=== PATIENT | male | born 1970 | race African-American/Black ===

== ENCOUNTER 2017-12-18 12:28 | Inpatient (IN) | payer MEDICAID, OTHER ==
[2017-12-18 13:19] LABS: #Basophils 0.2 thou/uL (0.0-0.2); #Eosinphils 0.1 thou/uL (0.0-0.7); #Lymphocytes 1.5 thou/uL (1.20-3.40); #Neutrophils 5.5 thou/uL (1.40-6.50); %Basophils 2.2 % (0.0-1.0); %Lymphocytes 18.6 % (21.0-51.0); %Monocytes 12.3 % (0.0-10.0); %Neutrophils 65.9 % (42.0-75.0); Hemoglobin 15.7 g/dL (14.0-18.0); Mean Corpuscular HGB CONC 32.9 g/dL (32.0-36.0); Mean Corpuscular Hemoglobin 30.8 pg (27.0-31.0); Mean Corpuscular Volume 93.8 fl (80.0-94.0); Mean Platelet Volume 7.6 fL (7.4-10.4); Platelet Count 240 thou/uL (130-400); RBC Distribution Width 13.7 % (11.5-14.5); Red Blood Cell (RBC) Count 5.11 mill/uL (4.70-6.10); White Blood Cell (WBC) Count 8.3 thou/uL (4.8-10.8)
[2017-12-18 13:22] LABS: Base Excess-Venous -0.8 mmol/L (0 (+/- 2.5)); Bicarbonate (HCO3v) 22.3 mmol/L (1.0-85.0); CO2 Tension (PvCO2) 32.1 mmHg (41.0-51.0); Calcium, Ionized 1.08 mmol/L (1.12-1.32); Hemoglobin - Calc 16.3 g/dL (12.0-18.0); O2 Tension (PvO2) 77.4 mmHg (35.0-45.0); Potassium 3.5 mmol/L (3.4-4.7); T. Carbon Dioxide 23.2 mmol/L (1.0-85.0); pH (Venous) 7.449 (7.35-7.45); vO2 Saturation-calc 96.1 % (94-98)
[2017-12-18 13:34] LABS: Lactic Acid 1.9 mmol/L (0.5-2.2)
[2017-12-18 13:38] LABS: ALT (SGPT) 15 U/L (8-55); AST (SGOT) 23 U/L (5-34); Albumin 3.9 g/dL (3.5-5.0); Alkaline Phosphatase 66 U/L (40-150); Anion Gap 12 mmol/L (10-20); BUN (Urea Nitrogen) 20 mg/dL (8.9-20.6); Bilirubin, Total 1.3 mg/dL (0.2-1.2); CK (CPK) 593 U/L (30-200); Calc. Creatinine Clearance 0 mL/min (70-130); Calcium 8.8 mg/dL (7.8-10.44); Carbon Dioxide 23 mmol/L (22-29); Chloride 110 mmol/L (98-107); Estimated GFR-MDRD 50; Glucose 119 mg/dL (70-105); Potassium 3.6 mmol/L (3.5-5.1); Protein, Total 6.9 g/dL (6.0-8.3); Sodium 141 mmol/L (136-145)
[2017-12-18 13:42] LABS: Troponin I 0.152 ng/mL (< 0.028)
[2017-12-18 13:47] LABS: CKMB 8.4 ng/mL (0-6.6)
--- NOTE | 2017-12-18 13:54 | RAD ---
CHEST 2 VIEWS: Date: 12/18/17 HISTORY: Chest pain. Blood stools. COMPARISON: None. FINDINGS: Normal cardiac silhouette. Pulmonary vessels and hilum are normal. Minimal blunting of the right cost ophrenic angle. Possible left lower lobe infiltrate. No pneumothorax or osseous abnormalities. IMPRESSION: 1. Left lower lobe infiltrate. 2. Minimal blunting of right costophrenic angle due to small effusion or atelectasis. POS: [facility]
[2017-12-18] MEDS ORDERED: Furosemide 40 MG/4 ML VIAL ONE (14:53)
[2017-12-18] MEDS ORDERED: Nitroglycerin 2% Ointment 1 INCH/1 GM Packet ONE (14:53)
[2017-12-18] MEDS ORDERED: Lorazepam 2 MG/ML VIAL ONE (14:54)
--- NOTE | 2017-12-18 16:42 | PDOC.FPRHP ---
- History of Present Illness Chief Complaint: shortness of breath for 3 days History of Present Illness: Kleber Prado is a 47 year old M with PMH of CHF, HLD, HTN, CAD s/p MN, and hx of strokes who presents to ED to with 3 day history of increased dyspnea, orthopnea, and paroxysmal nocturnal dyspnea. Patient states that he has a history of heart failure and his noncompliant with his medications, he has not taken any of his medications for the last 4 months. He moved to [place] from [place] in June of 2017 and he had issues with getting [place] insurance and he has not established care with a PCP in [place]. Patient states that his dyspnea is worse at night and it is very difficult for him to sleep. He often tries to sleep sitting up against his recliner with a fan blowing on him. He also states that he has associated leg edema. He endorses occasional use of cocaine, his last use was last night. Patient says he also has chronic bronchitis and for the last week he has had a bad cough and he occasional will cough up bright red blood. Those episodes of hemoptysis mostly occurred with intense coughing in the morning and resolved completely within an hour. Patient states that he became very concerned this morning when he had a BM and when he wiped there was bright red blood on the toilet paper. He states that he has never had blood on the toilet paper before and he denies any abdominal pain, constipation, straining. He has not had any other BMs today. Denies fever, chills, chest pain, vomiting, abdominal pain. ED Course: In the ED, patient received lasix, ativan, nitro paste, and duonebs which improved his symptoms. - Allergies/Adverse Reactions Allergies Allergy/AdvReac Type Severity Reaction Status Date / Time No Known Drug Allergies Allergy Verified 12/18/17 16:43 - Home Medications Medication Instructions Recorded Confirmed Type Amlodipine [Norvasc] 5 mg PO DAILY #30 tab 12/19/17 Rx Aspirin [Aspirin Chewable Tablet] 81 mg PO DAILY #30 tab 12/19/17 Rx Atorvastatin Calcium [Lipitor] 40 mg PO HS 30 Days #30 tab 12/19/17 Rx Lisinopril [Zestril] 10 mg PO DAILY #30 tab 12/19/17 Rx Pantoprazole [Protonix] 40 mg PO DAILY #30 tab 12/19/17 Rx Comments: Patient has not taken any medications and does not know doses of any medications. States that he thinks he has taken Coreg, Amlodipine, Lasix, Aspirin, Entresto and Lisinopril in the past. - History PMHx: CHF, Hyperlipidemia, Hypertension, CAD s/p MN, hx of strokes PSHx: Heart Cath several years ago, skull surgery after head trauma FHx: unknown Social: Endorses occasionally using cocaine, last use was last night, minimal alcohol use, and spokes about 1/3 ppd for the last 10 years - Review of Systems General: denies: fever/chills, weight/appetite/sleep changes, night sweats Eyes: denies: eye pain, vision changes ENT: denies: nasal congestion, rhinorrhea Respiratory: reports: cough, shortness of breath, exercise intolerance. denies : congestion Cardiovascular: reports: edema, paroxysmal nocturnal dyspnea, orthopnea. denies : chest pain, palpitation Gastrointestinal: reports: nausea, GI bleeding (BRBPR this morning on toilet paper). denies: vomiting, diarrhea, constipation, abdominal pain Genitourinary: denies: incontinence, dysuria, polyuria, discharge Skin: denies: rashes, lesions, jaundice, itching Musculoskeletal: denies: pain, tenderness, stiffness, swelling, arthritis/ arthralgias Neurological: denies: numbness, syncope, seizure, weakness Psychological: denies: anxiety, depression - Vital signs BP: 189/117 HR: 95 RR: 18 Tmax: 98.6 Pox: 99% on RA Wt: 117 kg - Physical Exam Constitutional: NAD, awake, alert and oriented, well developed -Constitutional: obese HEENT: normocephalic and atraumatic, PERRLA, EOMI, conjunctiva clear, MMM Neck: supple, FROM, no JVD Chest: no-tender to palpation, no lesions Heart: RRR, normal S1/S2, no murmurs/rubs/gallops Lungs: CTAB, no respiratory distress, good air movement, no rales/rhonchi, no wheezing Abdomen: soft, non-tender, bowel sounds present Musculoskeletal: normal structure, normal tone, ROM grossly normal Neurological: no focal deficit, CN II-XII intact, normal sensation Skin: no rash/lesions, good turgor Heme/Lymphatic: no unusual bruising or bleeding Psychiatric: normal mood and affect, intact recent and remote memory FMR H&P: Results - Labs Result Diagrams: 12/19/17 05:23 12/19/17 05:23 Lab results: WBC 8.3 thou/uL (4.8-10.8) 12/18/17 13:06 Hgb 15.7 g/dL (14.0-18.0) 12/18/17 13:06 Hct 47.9 % (42.0-52.0) 12/18/17 13:06 MCV 93.8 fl (80.0-94.0) 12/18/17 13:06 Plt Count 240 thou/uL (130-400) 12/18/17 13:06 Neutrophils % 65.9 % (42.0-75.0) 12/18/17 13:06 VBG pCO2 32.1 mmHg (41.0-51.0) L 12/18/17 13:20 VBG pO2 77.4 mmHg (35.0-45.0) H 12/18/17 13:20 Sodium 141 mmol/L (136-145) 12/18/17 13:07 Potassium 3.6 mmol/L (3.5-5.1) 12/18/17 13:07 Chloride 110 mmol/L (98-107) H 12/18/17 13:07 Carbon Dioxide 23 mmol/L (22-29) 12/18/17 13:07 BUN 20 mg/dL (8.9-20.6) 12/18/17 13:07 Creatinine 1.52 mg/dL (0.6-1.3) H 12/18/17 13:07 Glucose 119 mg/dL (70-105) H 12/18/17 13:07 Lactic Acid 1.9 mmol/L (0.5-2.2) 12/18/17 13:06 Calcium 8.8 mg/dL (7.8-10.44) 12/18/17 13:07 Total Bilirubin 1.3 mg/dL (0.2-1.2) H 12/18/17 13:07 AST 23 U/L (5-34) 12/18/17 13:07 ALT 15 U/L (8-55) 12/18/17 13:07 Alkaline Phosphatase 66 U/L (40-150) 12/18/17 13:07 Creatine Kinase 593 U/L (30-200) H 12/18/17 13:07 CK-MB (CK-2) 8.4 ng/mL (0-6.6) H* 12/18/17 13:07 B-Natriuretic Peptide 1222.9 pg/mL (0-100) H 12/18/17 13:06 Serum Total Protein 6.9 g/dL (6.0-8.3) 12/18/17 13:07 Albumin 3.9 g/dL (3.5-5.0) 12/18/17 13:07 - EKG Interpretation EKG: Sinus Tachycardia - Radiology Interpretation Chest x-ray Status: image reviewed by me, report reviewed by me Additional comment: LLL infiltrate, minimal blunting of the right costophrenic angle FMR H&P: A/P - Problem List (1) CHF exacerbation Current Visit: Yes Status: Acute Code(s): I50.9 - HEART FAILURE, UNSPECIFIED Qualifiers: Heart failure type: unspecified Qualified Code(s): I50.9 - Heart failure, unspecified (2) Demand ischemia Current Visit: Yes Status: Acute Code(s): I24.8 - OTHER FORMS OF ACUTE ISCHEMIC HEART DISEASE (3) Hypertensive urgency Current Visit: Yes Status: Resolved Code(s): I16.0 - HYPERTENSIVE URGENCY (4) Lower GI bleed Current Visit: Yes Status: Acute Code(s): K92.2 - GASTROINTESTINAL HEMORRHAGE, UNSPECIFIED (5) Hyperlipidemia Current Visit: Yes Status: Chronic Code(s): E78.5 - HYPERLIPIDEMIA, UNSPECIFIED (6) Polysubstance abuse Current Visit: Yes Status: Chronic Code(s): F19.10 - OTHER PSYCHOACTIVE SUBSTANCE ABUSE, UNCOMPLICATED - Plan 1) CHF exacerbation: Admit to Telemetry. EKG showed Sinus Tachycardia with no ST changes. BNP elevated at 1220. Check UDS as patient endorsed Cocaine use. Starting IV Lasix BID. Ordered Echo. Trend CKMB, Trops. Initially trop was indeterminant, likely secondary to demand ischemia from cocaine abuse. Check TSH. Strict I/Os, daily weight. No fluid restriction at this time as patient appears to be volume down and has an SARAH. 2) Hypertensive urgency: Likely secondary to cocaine abuse. Will continue to monitor BPs closely. Start home amlodipine. Hold beta daniel as patient endorses using cocaine. IV hydralazine for systolic pressures > 180 3) SARAH: Cr of 1.5. Unknown baseline. Gentle fluid resuscitation with NS @ 100 ml/hr. Check urine Na and Cr to check FENa. Continue to monitor. 4) Demand Ischemia: indeterminant trop likely 2/2 cocaine abuse 5) Lower GI bleed: Continue to monitor. FOBT +. Patient has only had one episode today. H/H are stable. Will continue to monitor. Patient may need outpatient follow with GI. 6) Polysubstance Abuse: Endorses smoking and cocaine use. Counselled on cessation. 7) HLD: Start statin Disposition/LOS: Admit to Tele. Length of hospital stay >2 days. FMR H&P: Upper Level - Pertinent history Patient is a 47yo AAM with PMHx of CHF, HTN and HLD who presents with BRBPR with blood clots. Patient states he has shortness of breath, orthopnea and nocturnal dyspnea for the past 3 days and has not been taking any of his meds for the past 4mo, but what brought him is the episode of hematochezia. Rectal exam done by ED physician and negative for hemorrhoids, fissures or BRB. In addition, found to have BNP elev at 1222.9. ED: Lasix 40iv, Ativan 0.5mg IV, nitro-bid, duoneb - Pertinent findings T 98.6 RR 20 HR 118 BP 189/117 O2 99% on RA Wt 118kg Gen: euphoric (under the influence of cocaine) HEENT: PERRLA Heart: S1 S2, tachycardic Lungs: CTAB Abd: soft/nt/nd/bs+ Ext: no cyanosis or edema CXR: possible LT lower lobe infiltrate, minimal blunting at RT costophrenic angle Cr: 1.52 Trop: 0.152 CKMB: 8.4 CK: 593 - Plan Date/Time: 12/18/17 1630 1. Acute on chronic CHF exacerbation: Patient recently moved here in June from [place] and has not been taking any of his medications for the past 4mo. States his EF is possibly 30% and meds include Lasix, entresto and amlodipine but not able to provide any further information. Clinical symptoms c/w with CHF exacerbation and has elev BNP at 1223 though he has no edema or rales on exam. Home Lasix is 20mg PO BID and will cont him on Lasix 20mg IV BID. I/Os, daily weights and fluid restrict. Obtain Echo. Hold coreg due to recent cocaine use and hold Lisinopril due to SARAH. 2. Hypertensive urgency: 2/2 to medication non-compliance and cocaine use. Start home amlodipine and provide prns. 3. Indeterminate troponins/elev CK-MB: likely demand from cocaine use. Asymptomatic without any chest pain. EKG without any acute isch changes. Cont to monitor CEz q3H. 4. Elev CK: 2/2 to cocaine use. Gentle hydration. Monitor. 5. Possible LT lower lobe infiltrate: CXR showing possible LT lower lobe infiltrate. Patient is afebrile, no leukocytosis and not clinically PNA. Repeat CXR in AM. Consider starting abx if patient dev worsening symptoms. 6. SARAH vs. CKD: Cr slightly elevated at 1.52. Obtain FeNa. Start lasix. Hold lisinopril. Monitor closely. 7. Hematochezia: +FOBT. H/H stable. If no recurrent episodes and H/H remains stable recommend outpatient cscope. 8. Polysubstance abuse: (+)cocaine. Hold BB. Obtain UDS. 9. CAD: start ASA. 10. HLD: start statin. I, Charisse Muñoz, have evaluated this patient and agree with findings/ plan as outlined by product managent intern resident. Pertinent changes/additions are listed here. Attending Addendum - Attending Addendum Date/Time: 12/18/171904 I personally evaluated the patient and discussed the management with Dr. Benitez I agree with the History, Examination, Assessment and Plan documented above with any addition or exceptions noted below. The patient is admitted with CHF exac, demand ischemia, SARAH. Patient had no chest pain. Cocaine use likely led to elevated CK, CKMB and troponin. Will trend. Get echo. Infiltrate seen on CXR though lung exam is clear, he has no fever and wbc is normal. Will repeat cxr in a.m. Check UDS. Hypertensive urgency, avoiding beta daniel 2/2 cocaine use.
[2017-12-18 17:04] LABS: Troponin I 0.183 ng/mL (< 0.028)
[2017-12-18 17:06] LABS: CKMB 7.7 ng/mL (0-6.6); Critical Call CKMBM RESULT DECREASING
[2017-12-18 20:05] LABS: Troponin I 0.182 ng/mL (< 0.028)
[2017-12-18] MEDS ORDERED: Acetaminophen 325 MG TAB PO PRN ×2 (21:57→23:52)
[2017-12-18] MEDS ORDERED: Ondansetron ODT 4 MG TAB SL PRN (21:57)
[2017-12-18] MEDS ORDERED: Ondansetron HCl/PF 4 MG/2 ML Vial IVP PRN (21:57)
[2017-12-18] MEDS ORDERED: Amlodipine 5 MG TAB PO SCH (23:45)
[2017-12-18] MEDS ORDERED: Ondansetron ODT 4 MG TAB PO PRN (23:52)
[2017-12-18] MEDS ORDERED: hydrALAZINE 20 MG/ML VIAL SLOW IVP PRN (23:52)
[2017-12-19] MEDS: Sodium Chloride 0.9% 1,000 ML IV SCH ×2 (00:25→09:31)
[2017-12-19 05:59] LABS: #Eosinphils 0.2 thou/uL (0.0-0.7); #Monocytes 0.9 thou/uL (0.11-0.59); #Neutrophils 4.7 thou/uL (1.40-6.50); %Basophils 0.4 % (0.0-1.0); %Eosinophils 1.9 % (0.0-10.0); %Lymphocytes 25.4 % (21.0-51.0); %Monocytes 11.9 % (0.0-10.0); %Neutrophils 60.3 % (42.0-75.0); Hemoglobin 14.6 g/dL (14.0-18.0); Mean Corpuscular HGB CONC 31.5 g/dL (32.0-36.0); Mean Corpuscular Hemoglobin 29.8 pg (27.0-31.0); Mean Corpuscular Volume 94.4 fl (80.0-94.0); Mean Platelet Volume 7.6 fL (7.4-10.4); Platelet Count 228 thou/uL (130-400); RBC Distribution Width 13.6 % (11.5-14.5); White Blood Cell (WBC) Count 7.9 thou/uL (4.8-10.8)
[2017-12-19 06:14] LABS: ALT (SGPT) 13 U/L (8-55); AST (SGOT) 16 U/L (5-34); Albumin 3.5 g/dL (3.5-5.0); Alkaline Phosphatase 61 U/L (40-150); Anion Gap 10 mmol/L (10-20); BUN (Urea Nitrogen) 20 mg/dL (8.9-20.6); Bilirubin, Total 0.7 mg/dL (0.2-1.2); CK (CPK) 306 U/L (30-200); Calc. Creatinine Clearance 81 mL/min (70-130); Calcium 8.7 mg/dL (7.8-10.44); Carbon Dioxide 25 mmol/L (22-29); Chloride 106 mmol/L (98-107); Estimated GFR-MDRD 67; Globulin 2.6 g/dL (2.4-3.5); Glucose 127 mg/dL (70-105); Protein, Total 6.1 g/dL (6.0-8.3); Sodium 138 mmol/L (136-145)
[2017-12-19] MEDS: Furosemide 20 MG/2 ML VIAL SLOW IVP SCH ×2 (06:14→14:12)
[2017-12-19 08:03] LABS: Amphetamine Not Detected (NotDetected); Barbiturates Screen Not Detected (NotDetected); Benzodiazepine Screen Detected (NotDetected); Cocaine Metabolite Screen Detected (NotDetected); Medtox Control Line Valid? VALID (VALID); Medtox Reader # READER 4; Methadone Not Detected (NotDetected); Methamphetamine Not Detected (NotDetected); Opiate Screen Not Detected (NotDetected); Oxycodone Screen Not Detected (NotDetected); Phencyclidine (PCP) Not Detected (NotDetected); THC/Cannabinoid Screen Not Detected (NotDetected); Tricyclic Screen Not Detected (NotDetected)
[2017-12-19 08:05] LABS: Creatinine, Urine 241.25 mg/dL (63-166)
--- NOTE | 2017-12-19 08:30 | PDOC.FM ---
- Subjective Subjective: 47 yo M with hx of CHF, HLD, CAD, CVA here with complaint of 1 episode of bloody stool. Upon admission it was noted that his BNP was 1222 and initial trop was 0.152. Pt was admitted for CHF exacerbation. Pt has been off of his meds for a few months since moving to [place]. Additionally, he has a recent hx of cocaine abuse. Since admission trops remained indeterminate, but stable. Today he has no specific complaints and there were no acute events over night. He denies a repeat episode of hematochezia. Tele noted a run of 6 beats of VT at 0530 - Objective MAR Reviewed: Yes Vital Signs & Weight: Vital Signs (12 hours) Temp Pulse Resp BP BP Pulse Ox 12/19/17 07:40 98.6 F 92 26 H 158/112 H 95 12/19/17 04:42 97.8 F 72 16 162/103 H 97 12/19/17 00:25 99 12/18/17 22:14 99 F 99 18 143/105 H 96 12/18/17 22:05 99 F 99 18 96 Weight Weight 85.003 kg I&O: 12/18/17 12/19/17 12/20/17 06:59 06:59 06:59 Intake Total 1200 Output Total 315 Balance 885 Result Diagrams: 12/19/17 05:23 12/19/17 05:23 EKG Reviewed by me: Yes <Len Christianson - Last Filed: 12/19/17 08:25> - Objective Vital Signs & Weight: Vital Signs (12 hours) Temp Pulse Pulse Pulse Resp BP BP 12/19/17 13:45 105 H 109 H 146/107 H 146/98 H 12/19/17 12:00 98.5 F 102 H 23 H 12/19/17 11:32 114 H 18 12/19/17 08:00 98.6 F 92 26 H 12/19/17 07:40 98.6 F 92 26 H 12/19/17 04:42 97.8 F 72 16 BP BP Pulse Ox Pulse Ox Pulse Ox 12/19/17 13:45 97 99 12/19/17 12:00 160/100 H 99 12/19/17 11:32 95 12/19/17 08:00 95 12/19/17 07:40 158/112 H 95 12/19/17 04:42 162/103 H 97 Weight Admit Weight 83.869 kg Weight 85.003 kg I&O: 12/18/17 12/19/17 12/20/17 06:59 06:59 06:59 Intake Total 1200 1373 Output Total 315 1180 Balance 885 193 Result Diagrams: 12/19/17 05:23 12/19/17 05:23 <Latrice Bolesanda - Last Filed: 12/19/17 15:04> Phys Exam - Physical Examination HEENT: PERRLA, moist MMs Neck: full ROM Respiratory: clear to auscultation bilateral Cardiovascular: RRR Systolic murmur Gastrointestinal: soft, non-tender, no distention, positive bowel sounds Musculoskeletal: no edema Neurological: non-focal, moves all 4 limbs Psychiatric: normal affect, A&O x 3 Skin: no rash <Len Christianson - Last Filed: 12/19/17 08:25> Dx/Plan (1) CHF exacerbation Code(s): I50.9 - HEART FAILURE, UNSPECIFIED Status: Acute QualifierTitle: Heart failure type: unspecified Qualified Code(s): I50.9 - Heart failure, unspecified (2) Demand ischemia Code(s): I24.8 - OTHER FORMS OF ACUTE ISCHEMIC HEART DISEASE Status: Acute (3) Hypertensive urgency Code(s): I16.0 - HYPERTENSIVE URGENCY Status: Resolved (4) Lower GI bleed Code(s): K92.2 - GASTROINTESTINAL HEMORRHAGE, UNSPECIFIED Status: Acute (5) Hyperlipidemia Code(s): E78.5 - HYPERLIPIDEMIA, UNSPECIFIED Status: Chronic (6) Polysubstance abuse Code(s): F19.10 - OTHER PSYCHOACTIVE SUBSTANCE ABUSE, UNCOMPLICATED Status: Chronic - Plan Plan: CHF exacerbation - Currently asymptomatic and appears to be euvolemic. Will attempt to wean O2 today - Nursing recorded no output yesterday, however per patients own notes he had 1300 out. - Echo pending Hypertensive urgency - Likely secondary to cocaine abuse and med non compliance. Continues to have elevated BP. Will add lisinopril today - Hold beta daniel as patient endorses using cocaine. - IV hydralazine for systolic pressures > 180 SARAH - Cr of 1.5 on admission. 1.4 today. Unknown baseline. - Gentle fluid resuscitation with NS @ 100 ml/hr. Check urine Na and Cr to check FENa. Continue to monitor. Demand Ischemia - indeterminant trop likely 2/2 cocaine abuse. 3rd trop is down trending. Lower GI bleed - Continue to monitor. Hb Stable today - FOBT +. - Likely hemorrhoids. Will need outpatient follow up Polysubstance Abuse - Endorses smoking and cocaine use. Counselled on cessation. HLD - Start statin. Lipid panel for risk stratification Hypokalemia - Replace and recheck BMP Dispo: Pt is stable. Will need to establish with local PCP. Likely ready for dc when echo results. <Len Christianson - Last Filed: 12/19/17 08:25> Attending Addendum - Attending Addendum Date/Time: 12/19/17 [id number] I personally evaluated the patient and discussed the management with Dr. Christianson and Dr. Muñoz I agree with the History, Examination, Assessment and Plan documented above with any addition or exceptions noted below. 47 yo male with ischemic cardiomyopathy causing HF admitted for acute decompensation. Patient starting to feel better. Still with some SOB and orthopnea overnight. ECHO pending. BP mildly elevated overnight. Will restart home meds. Discussed drug use. SARAH improving. Will hold IV fluids today. Repeat CXR without effusions or edema. Needs cards evaluation outpatient. Has been setup with heart failure clinic. Will continue to monitor throughout the day. Possible d/c this afternoon vs AM. RaeannMD <Marline Boles - Last Filed: 12/19/17 15:04>
[2017-12-19] MEDS ORDERED: Potassium Chloride 20 MEQ TAB PO SCH (08:45)
[2017-12-19 08:58] LABS: Cardiac Risk 3.4 (Less than 4.5)
--- NOTE | 2017-12-19 09:26 | RAD ---
PA AND LATERAL VIEW CHEST: INDICATIONS: Chest pain and shortness of breath. FINDINGS: There is stable cardiomegaly. There is slight elevation of the right hemidiaphragm. Mild blunting o f the right lateral costophrenic angle is stable. No definite pleural effusion is noted. The pulmon camille vasculature is normal appearing. No acute osseous abnormality is evident. IMPRESSION: Stable cardiomegaly. POS: [facility]
[2017-12-19] MEDS: Amlodipine 5 MG TAB PO SCH (09:31)
[2017-12-19] MEDS: Lisinopril 10 MG TAB PO SCH (09:31)
[2017-12-19] MEDS: Atorvastatin Calcium 40 MG TAB PO SCH (21:00)
[2017-12-19] MEDS: Diabetic Tussin 200 MG/10 ML UDCUP PO PRN (22:05)
[2017-12-20 05:30] LABS: #Basophils 0.1 thou/uL (0.0-0.2); #Eosinphils 0.3 thou/uL (0.0-0.7); #Lymphocytes 2.6 thou/uL (1.20-3.40); #Monocytes 0.9 thou/uL (0.11-0.59); #Neutrophils 4.5 thou/uL (1.40-6.50); %Basophils 1.3 % (0.0-1.0); %Eosinophils 3.3 % (0.0-10.0); %Lymphocytes 31.4 % (21.0-51.0); %Monocytes 10.5 % (0.0-10.0); %Neutrophils 53.6 % (42.0-75.0); Hemoglobin 15.9 g/dL (14.0-18.0); Mean Corpuscular Hemoglobin 29.3 pg (27.0-31.0); Mean Corpuscular Volume 94.4 fl (80.0-94.0); Mean Platelet Volume 7.6 fL (7.4-10.4); Platelet Count 269 thou/uL (130-400); RBC Distribution Width 13.7 % (11.5-14.5); Red Blood Cell (RBC) Count 5.42 mill/uL (4.70-6.10); White Blood Cell (WBC) Count 8.4 thou/uL (4.8-10.8)
[2017-12-20 05:57] LABS: ALT (SGPT) 16 U/L (8-55); AST (SGOT) 27 U/L (5-34); Albumin 3.6 g/dL (3.5-5.0); Alkaline Phosphatase 63 U/L (40-150); Anion Gap 12 mmol/L (10-20); BUN (Urea Nitrogen) 16 mg/dL (8.9-20.6); Bilirubin, Total 0.6 mg/dL (0.2-1.2); Calc. Creatinine Clearance 81 mL/min (70-130); Carbon Dioxide 25 mmol/L (22-29); Chloride 106 mmol/L (98-107); Estimated GFR-MDRD 69; Globulin 3.4 g/dL (2.4-3.5); Glucose 101 mg/dL (70-105); Potassium 4.1 mmol/L (3.5-5.1); Sodium 139 mmol/L (136-145)
[2017-12-20] MEDS ORDERED: Spironolactone 25 MG TAB PO SCH (06:00)
[2017-12-20] MEDS: Furosemide 20 MG/2 ML VIAL SLOW IVP SCH ×2 (06:32→14:51)
--- NOTE | 2017-12-20 07:50 | PDOC.FM ---
- Subjective Subjective: 47 yo M with hx of CHF, HTN, CKD, CAD, CVA admitted for acute CHF exacerbation and SARAH. He also had complaint of hematochezia on admission, there have been no repeat occurrences. Today patient states that he feels like he is back at baseline. He denies chest pain, SOB, cough, LE edema. There were no acute events over night. - Objective MAR Reviewed: Yes Vital Signs & Weight: Vital Signs (12 hours) Temp Pulse Resp BP Pulse Ox 12/20/17 04:00 97.9 F 100 20 179/112 H 93 L 12/19/17 23:50 104 H 16 158/101 H 12/19/17 21:00 97.9 F 113 H 20 94 L 12/19/17 20:00 97.9 F 113 H 20 168/110 H 94 L Weight Admit Weight 83.869 kg Weight 82.735 kg I&O: 12/19/17 12/20/17 12/21/17 06:59 06:59 06:59 Intake Total 1200 1753 Output Total 315 2805 Balance 885 -1052 Result Diagrams: 12/20/17 05:10 12/20/17 05:10 <Len Christianson - Last Filed: 12/20/17 07:47> - Objective Vital Signs & Weight: Vital Signs (12 hours) Temp Pulse Pulse Pulse Resp BP BP 12/20/17 12:15 99 12/20/17 09:46 12/20/17 09:37 124 H 121 H 165/114 H 179/97 H 12/20/17 09:26 99 12/20/17 08:00 97.8 F 99 16 BP Pulse Ox Pulse Ox Pulse Ox 12/20/17 12:15 168/115 H 12/20/17 09:46 156/82 H 12/20/17 09:37 93 L 96 12/20/17 09:26 12/20/17 08:00 160/121 H 97 Weight Admit Weight 83.869 kg Weight 82.735 kg I&O: 12/19/17 12/20/17 12/21/17 06:59 06:59 06:59 Intake Total 1200 1753 Output Total 315 2805 Balance 885 -1052 Result Diagrams: 12/20/17 05:10 12/20/17 05:10 <Marline Boles - Last Filed: 12/20/17 16:56> Phys Exam - Physical Examination Constitutional: NAD HEENT: PERRLA, moist MMs Neck: no JVD, supple, full ROM Respiratory: clear to auscultation bilateral Cardiovascular: RRR Systolic murmur Gastrointestinal: soft, non-tender, no distention, positive bowel sounds Musculoskeletal: no edema Neurological: non-focal, normal sensation, moves all 4 limbs Psychiatric: normal affect, A&O x 3 Skin: no rash <Len Christianson - Last Filed: 12/20/17 07:47> Dx/Plan (1) CHF exacerbation Code(s): I50.9 - HEART FAILURE, UNSPECIFIED Status: Acute QualifierTitle: Heart failure type: unspecified Qualified Code(s): I50.9 - Heart failure, unspecified (2) Demand ischemia Code(s): I24.8 - OTHER FORMS OF ACUTE ISCHEMIC HEART DISEASE Status: Acute (3) Hypertensive urgency Code(s): I16.0 - HYPERTENSIVE URGENCY Status: Resolved (4) Lower GI bleed Code(s): K92.2 - GASTROINTESTINAL HEMORRHAGE, UNSPECIFIED Status: Resolved (5) Hyperlipidemia Code(s): E78.5 - HYPERLIPIDEMIA, UNSPECIFIED Status: Chronic (6) Polysubstance abuse Code(s): F19.10 - OTHER PSYCHOACTIVE SUBSTANCE ABUSE, UNCOMPLICATED Status: Chronic - Plan Plan: CHF exacerbation - Pt is doing well on room air. He denies SOB or cough. Appears to be euvolemic. No LE edema - Net 1L output yesterday - Echo findings include 25-30% EF, Moderate-Severe MR, Increased pulmonary AA pressure, diastolic dysfxn - Start spironolactone today. This should also help with his blood pressure - Will not start beta daniel dt cocaine use - Refer to HF clinic and Cardiac rehab Hypertensive urgency - Lisinopril started yesterday, however continues to have elevated pressure. Will start spironolactone as above. - Hold beta daniel as patient endorses using cocaine. - IV hydralazine for systolic pressures > 180 SARAH - Cr of 1.3 today. Very possible that he is at baseline dt CKD Demand Ischemia - indeterminant trop likely 2/2 cocaine abuse. 3rd trop is down trending. Lower GI bleed - Stable Hb - FOBT +. - Likely hemorrhoids. Will need outpatient follow up Polysubstance Abuse - Endorses smoking and cocaine use. Counselled on cessation. HLD - On atorvastatin Hypokalemia - Resolved Dispo: Pt is stable and ready for dc today with follow up in clinic for chronic management <Len Christianson - Last Filed: 12/20/17 07:47> Attending Addendum - Attending Addendum Date/Time: 12/20/17 3468 I personally evaluated the patient and discussed the management with Dr. Christianson and Dr. Muñoz I agree with the History, Examination, Assessment and Plan documented above with any addition or exceptions noted below. 47 yo male with ischemic vs non-ischemic cardiomyopathy causing HF admitted for acute decompensation. HD#2 Echo read reviewed. Significantly reduced LVEF to 25 to 30% with restrictive pattern. On questioning today patient reports last EF was 30% approximately 5 years ago. Also reports having a negative cath but reports he has coronary disease. Therefore it appears patient has CV disease related to cocaine use with non-obstructive coronary disease and restrictive cardiomyopathy. Due to incomplete history and risk of ventricular arrhythmias with consult cards today. Acute decompensation appears resolved. Started on spironolactone today. Will discuss BB with alpha properties with cards. Has been setup with heart failure clinic. Discussed drug use at length. Appears to prefer inhalation. Discussed CV and pulmonary risk. Reports going on "cocaine benders" SARAH improving. HR and BP still appear to be reflecting cocaine and metabolites. Will use benzos vs vasodilators as needed. Recommend nondihydropyridine CCB. Will continue to monitor throughout the day. Awaiting cards evaluation for dispo. RaeannMD <Marline Boles - Last Filed: 12/20/17 16:56>
[2017-12-20] MEDS: Amlodipine 5 MG TAB PO SCH (09:26)
[2017-12-20] MEDS: Lisinopril 10 MG TAB PO SCH ×2 (09:26→21:24)
[2017-12-20] MEDS: Diabetic Tussin 200 MG/10 ML UDCUP PO PRN ×2 (14:10→21:24)
[2017-12-20] MEDS: Atorvastatin Calcium 40 MG TAB PO SCH (21:24)
[2017-12-21 05:29] LABS: #Basophils 0.1 thou/uL (0.0-0.2); #Eosinphils 0.2 thou/uL (0.0-0.7); #Lymphocytes 2.8 thou/uL (1.20-3.40); #Monocytes 0.6 thou/uL (0.11-0.59); #Neutrophils 3.4 thou/uL (1.40-6.50); %Basophils 1.4 % (0.0-1.0); %Lymphocytes 39.1 % (21.0-51.0); %Neutrophils 47.4 % (42.0-75.0); Hemoglobin 16.4 g/dL (14.0-18.0); Mean Corpuscular HGB CONC 32.4 g/dL (32.0-36.0); Mean Corpuscular Hemoglobin 31.1 pg (27.0-31.0); Mean Corpuscular Volume 95.8 fl (80.0-94.0); Platelet Count 282 thou/uL (130-400); RBC Distribution Width 13.5 % (11.5-14.5); Red Blood Cell (RBC) Count 5.28 mill/uL (4.70-6.10); White Blood Cell (WBC) Count 7.1 thou/uL (4.8-10.8)
[2017-12-21 05:46] LABS: ALT (SGPT) 16 U/L (8-55); AST (SGOT) 19 U/L (5-34); Albumin 3.8 g/dL (3.5-5.0); Alkaline Phosphatase 66 U/L (40-150); Anion Gap 12 mmol/L (10-20); BUN (Urea Nitrogen) 19 mg/dL (8.9-20.6); Bilirubin, Total 0.7 mg/dL (0.2-1.2); Calc. Creatinine Clearance 81 mL/min (70-130); Calcium 9.6 mg/dL (7.8-10.44); Carbon Dioxide 27 mmol/L (22-29); Chloride 103 mmol/L (98-107); Estimated GFR-MDRD 69; Glucose 100 mg/dL (70-105); Potassium 3.8 mmol/L (3.5-5.1); Protein, Total 6.8 g/dL (6.0-8.3); Sodium 138 mmol/L (136-145)
[2017-12-21] MEDS: Diabetic Tussin 200 MG/10 ML UDCUP PO PRN ×3 (06:11→21:00)
[2017-12-21] MEDS: Furosemide 20 MG/2 ML VIAL SLOW IVP SCH ×2 (06:12→14:32)
--- NOTE | 2017-12-21 08:36 | PDOC.FM ---
- Subjective Subjective: 47 yo M w/hx of mixed CHF, cocaine abuse, HTN, CKD here for acute CHF exacerbation. Pt states that he feels like he is back to normal today. He denies all symptoms in ROS and denies onset of any new symptoms. There were no acute events over night. - Objective MAR Reviewed: Yes Vital Signs & Weight: Vital Signs (12 hours) Temp Pulse Resp BP Pulse Ox 12/21/17 04:00 97.7 F 96 18 145/102 H 97 12/20/17 21:24 98.4 F 96 16 96 12/20/17 21:23 98.4 F 96 16 168/98 H 96 Weight Admit Weight 83.869 kg Weight 83.915 kg I&O: 12/20/17 12/21/17 12/22/17 06:59 06:59 06:59 Intake Total 175 738 Output Total 5769 8601 Balance -9830 -031 Result Diagrams: 12/21/17 04:54 12/21/17 04:54 <Len Christianson - Last Filed: 12/21/17 08:34> - Objective Vital Signs & Weight: Vital Signs (12 hours) Temp Pulse Pulse Pulse Resp BP BP 12/21/17 09:53 97 102 H 161/92 H 12/21/17 09:15 130/87 12/21/17 09:14 130/87 12/21/17 08:00 98.5 F 91 16 12/21/17 04:00 97.7 F 96 18 BP BP BP Pulse Ox Pulse Ox Pulse Ox 12/21/17 09:53 156/109 H 96 99 12/21/17 09:15 12/21/17 09:14 12/21/17 08:00 130/87 150/93 H 96 12/21/17 04:00 145/102 H 97 Weight Admit Weight 83.869 kg Weight 83.915 kg I&O: 12/20/17 12/21/17 12/22/17 06:59 06:59 06:59 Intake Total 1756 738 Output Total 1892 1353 Balance -3075 -452 Result Diagrams: 12/21/17 04:54 12/21/17 04:54 <Marline Boles - Last Filed: 12/21/17 14:27> Phys Exam - Physical Examination Constitutional: NAD HEENT: moist MMs Neck: no JVD, supple, full ROM Respiratory: clear to auscultation bilateral Cardiovascular: RRR systolic murmur Gastrointestinal: soft, non-tender, no distention, positive bowel sounds Musculoskeletal: no edema Neurological: non-focal, normal sensation, moves all 4 limbs Psychiatric: normal affect, A&O x 3 Skin: no rash <Len Christianson - Last Filed: 12/21/17 08:34> Dx/Plan (1) CHF exacerbation Code(s): I50.9 - HEART FAILURE, UNSPECIFIED Status: Acute QualifierTitle: Heart failure type: unspecified Qualified Code(s): I50.9 - Heart failure, unspecified (2) Demand ischemia Code(s): I24.8 - OTHER FORMS OF ACUTE ISCHEMIC HEART DISEASE Status: Acute (3) Hypertensive urgency Code(s): I16.0 - HYPERTENSIVE URGENCY Status: Resolved (4) Lower GI bleed Code(s): K92.2 - GASTROINTESTINAL HEMORRHAGE, UNSPECIFIED Status: Resolved (5) Hyperlipidemia Code(s): E78.5 - HYPERLIPIDEMIA, UNSPECIFIED Status: Chronic (6) Polysubstance abuse Code(s): F19.10 - OTHER PSYCHOACTIVE SUBSTANCE ABUSE, UNCOMPLICATED Status: Chronic - Plan Plan: CHF exacerbation - Pt appears to be at baseline. Doing well without O2, no SOB, no edema - Net 600 mL output yesterday - Echo findings include 25-30% EF, Moderate-Severe MR, Increased pulmonary AA pressure, diastolic dysfxn - Spironolactone started yesterday - Pt has been started back on Coreg by cardiology. I spent a significant amount of time with the patient this morning explaining the potential danger of mixing beta blockers and cocaine. Pt clearly understood and stated that he was done with drugs and seemed committed to lifestyle change. - Refer to HF clinic and Cardiac rehab in outpatient setting Hypertensive urgency - Pt continued to have elevated BP over night as high as 179/97. After dose of coreg today his pressures have improved - Norvasc was stopped yesterday by cards and replaced with coreg as above. - IV hydralazine for systolic pressures > 180 SARAH - This appears to have resolved and stabilized at what is likely pts baseline Demand Ischemia - resolved Lower GI bleed - Stable Hb - FOBT +. - Likely hemorrhoids. Will need outpatient follow up Polysubstance Abuse - Endorses smoking and cocaine use. Counselled on cessation. HLD - On atorvastatin Hypokalemia - Resolved Dispo: Pt is stable and ready for dc today with follow up in clinic for chronic management <Len Christianson - Last Filed: 12/21/17 08:34> Attending Addendum - Attending Addendum Date/Time: 12/21/17 8029 I personally evaluated the patient and discussed the management with Dr. Christianson and Dr. Muñoz I agree with the History, Examination, Assessment and Plan documented above with any addition or exceptions noted below. 47 yo male with (etiology unknown) cardiomyopathy causing HF admitted for acute decompensation with cocaine-induced chest pain. HD#3 Cards following. Awaiting consult note. Decompensation HF resolved. Placed on recommended medications for degree of HF. Unsure etiology. Records were requested. Risk of sudden elevated from arrhythmia due to LVEF. Awaiting cards recs. Will continue to monitor throughout the day. Awaiting cards evaluation for dispo. ABrayMD <Marline Boles - Last Filed: 12/21/17 14:27>
[2017-12-21] MEDS: Spironolactone 25 MG TAB PO SCH (09:14)
[2017-12-21] MEDS: Lisinopril 10 MG TAB PO SCH ×2 (09:14→20:41)
[2017-12-21] MEDS: Carvedilol 6.25 MG TAB PO SCH ×2 (09:15→17:48)
--- NOTE | 2017-12-21 12:17 | CON ---
DATE OF CONSULTATION: 12/20/2017 HISTORY OF PRESENT ILLNESS: Mr. Kleber Prado is a 47-year-old black male who moved here from [place]. Apparently, he was evaluated there and told that he had heart failure and 2-3 years ago underwent heart catheterization and was told that his coronary arteries were normal. He was taking carvedilol and Entresto there; however, after moving to [place], he had trouble getting insurance and it is unclear exactly what he is taking at this time. He has had problems with increasing shortness of breath and has been having trouble sleeping in bed at night, but had to sleep in a recliner. He also has had some leg edema. Due to his increased shortness of breath, he came to the emergency room for evaluation. PAST MEDICAL HISTORY: Hypertension, hypercholesterolemia, systolic heart failure, history of strokes, apparently normal coronary arteries according to his history. OPERATIONS: Skull surgery after head trauma. SOCIAL HISTORY: He smokes 2 cigarettes per day. Occasionally drinks alcohol. He does use cocaine. FAMILY HISTORY: Unknown. REVIEW OF SYSTEMS: A 10-point review of systems otherwise unremarkable. PHYSICAL EXAMINATION: VITAL SIGNS: Blood pressure 168/115, pulse is 99. It is of note that on admission his blood pressure was 189/117 with a pulse of 118. HEENT: PERRL. NECK: Supple. CHEST: Clear. CARDIAC: S1 and S2 normal, without any S3, S4 or murmurs. ABDOMEN: Normal bowel sounds, without tenderness or organomegaly. EXTREMITIES: Revealed no clubbing, cyanosis or edema. NEUROLOGIC: Grossly intact. SKIN: Warm and dry. LABORATORY AND IMAGING DATA: EKG revealed sinus tachycardia with left atrial enlargement, left ventricular hypertrophy, nonspecific T-wave changes. Echocardiogram revealed ejection fraction of 25% to 30%, suggestive of diastolic dysfunction, mild to moderate concentric left ventricular hypertrophy , moderate to severe mitral regurgitation, mild to moderate tricuspid regurgitation and mildly elevated pulmonary artery pressure. Hemoglobin 15.9, hematocrit 51.2, white count 8400 and platelets 269,000. Urine drug screen is positive for benzodiazepines and cocaine. A pH 7.449, pCO2 of 32.1 and pO2 of 77.4. Sodium 139, potassium 4.1, chloride 106, carbon dioxide 25, BUN 16 and creatinine 1.35. Cholesterol 163, triglycerides 95, HDL 48 and LDL 96. CK-MB 7.7 and troponin I 0.183. IMPRESSION: 1. Acute on chronic systolic and diastolic heart failure. 2. Reportedly normal coronary arteries according to the patient. 3. Demand ischemia. 4. Ejection fraction of 25% to 30%. 5. Noncompliance with medications. 6. Hypertension. 7. Hypercholesterolemia under good control. 8. Smoker. 9. Cocaine abuse. PLAN: Mr. Prado will continue to be diuresed, although at the present time, it appears that his edema has resolved. He will be placed on carvedilol. Amlodipine will be discontinued and his lisinopril dose will be increased. 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 However, with lack of insurance, he would not be able to afford that and so will just be placed on an ROBERT inhibitor. [place]
[2017-12-21] MEDS: Atorvastatin Calcium 40 MG TAB PO SCH (20:40)
[2017-12-22 05:36] LABS: #Eosinphils 0.2 thou/uL (0.0-0.7); #Lymphocytes 2.6 thou/uL (1.20-3.40); #Monocytes 0.7 thou/uL (0.11-0.59); #Neutrophils 3.3 thou/uL (1.40-6.50); %Basophils 0.4 % (0.0-1.0); %Eosinophils 2.8 % (0.0-10.0); %Lymphocytes 38.1 % (21.0-51.0); %Neutrophils 48.6 % (42.0-75.0); Hemoglobin 17.4 g/dL (14.0-18.0); Mean Corpuscular HGB CONC 32.6 g/dL (32.0-36.0); Mean Corpuscular Hemoglobin 30.4 pg (27.0-31.0); Mean Corpuscular Volume 93.4 fl (80.0-94.0); Mean Platelet Volume 7.7 fL (7.4-10.4); Platelet Count 295 thou/uL (130-400); RBC Distribution Width 13.4 % (11.5-14.5); Red Blood Cell (RBC) Count 5.72 mill/uL (4.70-6.10); White Blood Cell (WBC) Count 6.7 thou/uL (4.8-10.8)
[2017-12-22 05:53] LABS: ALT (SGPT) 15 U/L (8-55); AST (SGOT) 20 U/L (5-34); Albumin 3.8 g/dL (3.5-5.0); Alkaline Phosphatase 65 U/L (40-150); Anion Gap 14 mmol/L (10-20); BUN (Urea Nitrogen) 23 mg/dL (8.9-20.6); Bilirubin, Total 0.6 mg/dL (0.2-1.2); Calc. Creatinine Clearance 86 mL/min (70-130); Calcium 9.3 mg/dL (7.8-10.44); Carbon Dioxide 24 mmol/L (22-29); Chloride 103 mmol/L (98-107); Estimated GFR-MDRD 73; Glucose 103 mg/dL (70-105); Protein, Total 6.8 g/dL (6.0-8.3); Sodium 137 mmol/L (136-145)
[2017-12-22] MEDS ORDERED: Furosemide 40 MG TAB PO SCH (07:30)
[2017-12-22] MEDS: Carvedilol 6.25 MG TAB PO SCH ×2 (08:34→17:26)
[2017-12-22] MEDS: Lisinopril 10 MG TAB PO SCH (08:34)
[2017-12-22] MEDS: Spironolactone 25 MG TAB PO SCH (08:35)
[2017-12-22 09:14] VITALS: BMI 30.9
--- NOTE | 2017-12-22 09:20 | PDOC.FM ---
- Subjective Subjective: 47 M here for acute CHF exacerbation. Pt clinically at baseline with no complaints today. He remains hospitalized dt EF less than 30 and is being fitted for lifevest. There were no acute events over night. Pt has no new symptoms. Denies all symptoms in ROS - Objective Vital Signs & Weight: Vital Signs (12 hours) Temp Pulse Resp BP BP Pulse Ox 12/22/17 08:34 123/93 H 12/22/17 08:00 97.9 F 93 16 123/93 H 98 12/22/17 00:00 146/93 H 12/21/17 23:36 97.8 F 84 14 107/55 L 92 L Weight Admit Weight 83.869 kg Weight 84.414 kg I&O: 12/21/17 12/22/17 12/23/17 06:59 06:59 06:59 Intake Total 738 1125 Output Total 1350 2225 Balance -612 -1100 Result Diagrams: 12/22/17 05:08 12/22/17 05:08 <Len Christianson - Last Filed: 12/22/17 09:18> - Objective Vital Signs & Weight: Weight Admit Weight 83.869 kg Weight 84.414 kg I&O: 12/22/17 12/23/17 12/24/17 06:59 06:59 06:59 Intake Total 1125 Output Total 2225 Balance -1100 Result Diagrams: 12/22/17 05:08 12/22/17 05:08 <Marline Boles - Last Filed: 12/23/17 17:44> Phys Exam - Physical Examination Constitutional: NAD HEENT: sclera anicteric Neck: no JVD, supple, full ROM Respiratory: clear to auscultation bilateral Cardiovascular: RRR Systolic murmur Gastrointestinal: soft, non-tender, no distention, positive bowel sounds Musculoskeletal: no edema Neurological: non-focal, normal sensation, moves all 4 limbs Psychiatric: normal affect, A&O x 3 Skin: no rash <Len Christianson - Last Filed: 12/22/17 09:18> Dx/Plan (1) CHF exacerbation Code(s): I50.9 - HEART FAILURE, UNSPECIFIED Status: Acute QualifierTitle: Heart failure type: unspecified Qualified Code(s): I50.9 - Heart failure, unspecified (2) Demand ischemia Code(s): I24.8 - OTHER FORMS OF ACUTE ISCHEMIC HEART DISEASE Status: Acute (3) Hypertensive urgency Code(s): I16.0 - HYPERTENSIVE URGENCY Status: Resolved (4) Lower GI bleed Code(s): K92.2 - GASTROINTESTINAL HEMORRHAGE, UNSPECIFIED Status: Resolved (5) Hyperlipidemia Code(s): E78.5 - HYPERLIPIDEMIA, UNSPECIFIED Status: Chronic (6) Polysubstance abuse Code(s): F19.10 - OTHER PSYCHOACTIVE SUBSTANCE ABUSE, UNCOMPLICATED Status: Chronic - Plan Plan: CHF exacerbation - Pt appears to be at baseline. Doing well without O2, no SOB, no edema - Net 1100 mL output yesterday. Continue fluid restriction - Echo findings include 25-30% EF, Moderate-Severe MR, Increased pulmonary AA pressure, diastolic dysfxn. Pt being fitted for life vest today - Continue spironolactone and coreg. Again discussed danger of beta blockers and cocaine - Refer to HF clinic and Cardiac rehab in outpatient setting Hypertensive urgency - Pressures elevated to 140s/90s, but improved. Continue to manage BP as outpt - IV hydralazine for systolic pressures > 180 SARAH - This appears to have resolved and stabilized at what is likely pts baseline Demand Ischemia - resolved Lower GI bleed - Stable Hb - FOBT +. - Likely hemorrhoids. Will need outpatient follow up Polysubstance Abuse - Endorses smoking and cocaine use. Counselled on cessation. HLD - On atorvastatin Hypokalemia - Resolved Dispo: PT ready for DC today after being fitted w/life vest <Len Christianson - Last Filed: 12/22/17 09:18> Attending Addendum - Attending Addendum Date/Time: 12/23/17 6203 I personally evaluated the patient and discussed the management with Dr. Christianson and Dr. Muñoz I agree with the History, Examination, Assessment and Plan documented above with any addition or exceptions noted below. 47 yo male with (etiology unknown) cardiomyopathy causing HF admitted for acute decompensation with cocaine-induced chest pain. HD#4 LIfeVest today then discharge to home. Has heart failure clinic set up outpatient. Instructed against the use of cocaine. RaeannMD <Marline Boles - Last Filed: 12/23/17 17:44>
[2017-12-22 17:27] VITALS: BP 123/100
[2017-12-22 17:34] VITALS: TEMP 96
--- NOTE | 2017-12-23 12:25 | DIS-2 ---
ADMISSION DATE: 12/18/2017 DISCHARGE DATE: 12/22/2017 RESIDENT: Len Christianson DO. ADMITTING ATTENDING: Bushra Ortega M.D. DISCHARGE ATTENDING: Marline Boles M.D. CONSULTATIONS: Cardiology, Dr. Luna. PROCEDURES: Echocardiogram with result of ejection fraction 25% to 30%, restrictive filling pattern, mild to moderate left ventricular concentric hypertrophy, mild to severe mitral regurg, mild to moderate tricuspid regurg and mildly elevated pulmonary artery pressure. PRIMARY DIAGNOSIS: Acute on chronic congestive heart failure. SECONDARY DIAGNOSES: Hematochezia, intermittent sharps, cocaine abuse, acute kidney injury, chronic kidney disease, hypertensive urgency, hyperlipidemia, coronary artery disease, and cardiomegaly. DISCHARGE MEDICATIONS: Aspirin 81 mg p.o. daily, atorvastatin 40 mg p.o. at bedtime, lisinopril 10 mg p.o. daily, Protonix 40 mg p.o. daily, spironolactone 25 mg q.a.m., and Coreg 6.25 mg p.o. b.i.d. DISCONTINUED MEDICATIONS: None. HOSPITAL COURSE: This is a 47-year-old male who presented to the emergency room with 3-day history of increased dyspnea, orthopnea, and paroxysmal nocturnal dyspnea. The patient was admitted for an acute CHF exacerbation. Apparently, he had this diagnosis for at least 4 years, and was previously treated in the [facility]; however, he moved to this area approximately 4 months ago and has since been off his medications and has not established with a physician locally. Additionally, the patient has a significant history of cocaine abuse and had recently been on a self described (cocaine bailey). Also on admission, the patient had a complaint of one episode of bright red blood on the toilet paper following a bowel movement. This is the first time he has ever noticed it and has not had a recurrent episode. At the time of admission, the patient denied orthostatic symptoms and vitals and was not anemic. The patient was hypertensive to the point of hypertensive urgency and tachycardic. Regarding the congestive heart failure, the patient was diuresed over the following 3 days. With a resolution of symptoms by the second day of admission. The patient stated that he had an echo was completed with the above results. Due to the ejection fraction being was 30%, cardiology was consulted. Upon their recommendation, the patient was written for a LifeVest with instructions to follow up with Cardiology in an outpatient setting. Additionally, the patient was started on spironolactone due to the ejection fraction and the patient was started on a beta-daniel due to the ejection fraction. This decision was made with Cardiology. The patient was explained multiple times by both myself and Cardiology of the potential dangers of combining cocaine and a beta-daniel. The patient committed to no longer using cocaine and fully understood the potential consequences associated with this interaction. Regarding the patient's hypertension, was started on lisinopril in the hospital , although Entresto would be preferred, given the patient's CHF is more likely the patient will be compliant due to a cheaper medication and lisinopril. Additionally, Coreg was titrated up from an initial starting dose 6.25. The patient had reasonably good control of his blood pressure by the time of discharge. Regarding the patient's kidney disease, this is likely secondary to long-term uncontrolled high blood pressure, but the patient seemed to normalize at a creatinine of around 1.35 with a GFR in the high 60s to low 70s. As recommended , this patient will follow up with the primary care provider in order for long- term management of these pathologies. Regarding hematochezia, the patient's hemoglobin remained stable throughout the hospitalization. Additionally, he had no further episodes of bright red blood per rectum. This most likely secondary to hemorrhoids. It was recommended that the patient follow up with a primary care provider for further management. DISPOSITION: Stable. DISCHARGE INSTRUCTIONS: 1. Location: Home. 2. Diet: Heart healthy, low sodium. 3. Activity with cardiopulmonary limits. 4. Follow up with cardiac rehab on 01/02 with [facility] Failure [facility] and with [facility] physicians for further management. [place]
== END 2017-12-22 17:32 | disposition home or self-care (01) | DRG 291 ==
LOC: ERS 12:28 → 2NO 21:35
PROVIDERS: ADMIT Family Medicine; ATTEND Family Medicine
DX: I13.0 Hypertensive heart and chronic kidney disease with heart failure and stage 1 through stage 4 chronic kidney disease, or unspecified chronic kidney disease (principal); I50.43 Acute on chronic combined systolic (congestive) and diastolic (congestive) heart failure; I47.2 Ventricular tachycardia; N17.9 Acute kidney failure, unspecified; I24.8 Other forms of acute ischemic heart disease; K92.2 Gastrointestinal hemorrhage, unspecified; I08.1 Rheumatic disorders of both mitral and tricuspid valves; K92.1 Melena; I42.9 Cardiomyopathy, unspecified; I16.0 Hypertensive urgency; E78.5 Hyperlipidemia, unspecified; F19.10 Other psychoactive substance abuse, uncomplicated; E87.6 Hypokalemia; F14.10 Cocaine abuse, uncomplicated; I25.10 Atherosclerotic heart disease of native coronary artery without angina pectoris; Z86.73 Personal history of transient ischemic attack (TIA), and cerebral infarction without residual deficits; Z91.14 Patient's other noncompliance with medication regimen; F17.210 Nicotine dependence, cigarettes, uncomplicated; I25.2 Old myocardial infarction; N18.9 Chronic kidney disease, unspecified; K64.9 Unspecified hemorrhoids
CPT/HCPCS: 36415; 71046; 80053; 80061; 80306; 82274; 82330; 82550; 82553; 82570; 82803; 83605; 83880; 84300; 84443; 84484; 85025; 86850; 86900; 86901; 93005; 93306; 93798; 94640; 94760; 96374; 96375; A4216; J1940; J2060; J7620